=== PATIENT | female | born 1975 | race Caucasian/White ===

== ENCOUNTER 2025-03-10 10:07 | Outpatient (OUT) | payer SELFPAY ==
--- OUTSIDE RECORDS SUMMARY | 2025-03-07 19:54 | XMS_ITS | Continuity of Care Document ---
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 Name Role Phone Clara Rueda CNP Unavailable Unavailable Allergies, Adverse Reactions, Alerts Substance Reaction Status Criticality shellfish derived Active No Informa tion tetracycline Active No Information Medications Medication Instructions Dosage Effective Dates (start - stop) Status Comments desvenlafaxine succinate ER 25 mg tablet,extended release 24 hr TAKE ONE TABLET BY MOUTH DAILY AT THE same time each DAY - Active ondansetron HCl 4 mg tablet TAKE ONE TABLET BY MOUTH THREE TIMES DAILY NEEDED - Active Xanax 1 mg tablet take 1 tablet by oral route 2 times every day 1 MG - Active sertraline 100 mg tablet TAKE ONE TABLET BY MOUTH EVERY DAY - Active scopolamine 1 mg over 3 days transdermal patch apply 1 patch by transdermal route to the hairless area behind 1 ear at least 4 hr before effect is required; reapply every 3 days as needed 1.00 patch - Active Crestor 40 mg tablet take 1 tablet by oral route every day 40 MG - Active pantoprazole 40 mg tablet,delayed release take 1 tablet by oral route every day 40 MG - Active Mirena 21 mcg/24 hr (up to 8 years) 52 mg intrauterine device inject 1 Unit by Intrauterine route 1 Unit - Active Humalog [place] KwikPen (U-100) 100 unit/mL subcutaneous half-unit pen inject by subcutaneous route as per insulin protocol 0.00 - Active Procedures Procedure Date Psychotherapy 30 Minutes TeleHealth Visit [facility] Drug Monitoring Offsite Lab OFFICE VISIT/EST LEVEL III HG A1C LEVEL 7.0-8.0% LDL-C>= 130 MG/DL NEG MICROALBUMINURIA REV DIAST BP < 80 MM HG SYST BP < 130 MM HG RVW MEDS BY RX/DR IN [facility] MED LIST DOCD IN [facility] Screened Tobacco; User With Counseling J Cerv Cancer Screen Doc Rev OFFICE VISIT/EST LEVEL III HG A1C LEVEL 7.0-8.0% LDL-C>= 130 MG/DL NEG MICROALBUMINURIA REV DIAST BP < 80 MM HG SYST BP < 130 MM HG RVW MEDS BY RX/DR IN [facility] MED LIST DOCD IN [facility] Screened Tobacco; User With Counseling J PHQ2 Negative Cerv Cancer Screen Doc Rev OFFICE VISIT/EST LEVEL III HG A1C LEVEL 7.0-8.0% LDL-C>= 130 MG/DL NEG MICROALBUMINURIA REV DIAST BP < 80 MM HG SYST BP < 130 MM HG RVW MEDS BY RX/DR IN [facility] MED LIST DOCD IN [facility] Screen Tobacco; User No Counseling PHQ2 Negative Cerv Cancer Screen Doc Rev TRANS CARE MGMT 14 DAY DISCH AMNT PAIN NOTED NONE PRSNT URINE /COLOR COMPAR. OnSite Sep IUD REMOVAL (OFFICE)SIMPLE IUD INSERTION 340B Mirena IUD 52mg Levonorgestrel 7 yr SFS EXMPT URINE /COLOR COMPAR. OnSite Jul COLPOSCOPY W/ENDOCERVICAL CURETT [facility] Surgical Pathology LEVEL IV, Gross & Isma roscopic OFFICE VISIT/EST LEVEL IV HG A1C LEVEL 7.0-8.0% DIAST BP 80-89 MM HG SYST BP >=130-139MM HG RVW MEDS BY RX/DR IN [facility] MED LIST DOCD IN [facility] Screened Tobacco; User With Counseling J PHQ2 Negative Cerv Cancer Screen Doc Rev NuSwabVG+ Offsite [id number], [id number] PREV.VISIT/EST.40-64 YRS HG A1C LEVEL 7.0-8.0% DIL RETINA WITHOUT RETINOPATHY DIAST BP 80-89 MM HG SYST BP> = 140 MM HG6 IT RVW MEDS BY RX/DR IN [facility] MED LIST DOCD IN [facility] Screened Tobacco; User With Counseling J PHQ2 Negative Substance Abuse screening CHLAMYDIA/DNA PROBE Offsite Lab 025 GGDNA Offsite Lab CHLAMYDIA/DNA PROBE Offsite Lab 025 GGDNA Offsite Lab HPV, High Risk Offsite Trichomonas Vaginalis SREEDHAR Offsite Lab Thin Prep Pap Smear Offsite Psychotherapy 45 Minutes Psychotherapy Diagnostic Evaluation OV O Complex Interactive Encounter Excptn Apr OFFICE VISIT/EST LEVEL III HG A1C LEVEL 7.0-8.0% DIAST BP < 80 MM HG SYST BP >=130-139MM HG RVW MEDS BY RX/DR IN [facility] MED LIST DOCD IN [facility] Screen Tobacco; User No Counseling PHQ2 Pos W/ PHQ9 Completed OFFICE VISIT/EST LEVEL IV HG A1C LEVEL 7.0-8.0% DIAST BP < 80 MM HG SYST BP < 130 MM HG RVW MEDS BY RX/DR IN [facility] MED LIST DOCD IN [facility] Screened Tobacco; User With Counseling A Substance Abuse screening PREV.VISIT/EST.40-64 YRS HG A1C LEVEL 7.0-8.0% DIL RETINA WITHOUT RETINOPATHY DIAST BP 80-89 MM HG SYST BP < 130 MM HG RVW MEDS BY RX/DR IN [facility] MED LIST DOCD IN [facility] Screened Tobacco; User With Counseling N PHQ2 Negative OFFICE VISIT/EST LEVEL III Medication Reviewed Screened Tobacco; User With Counseling J PHQ2 Negative Substance Abuse screening SARSCOV & INF VIR A&B AG IA Onsite QUICK STREP OnSite OFFICE VISIT/EST LEVEL III Medication Reviewed Screened Tobacco; User With Counseling N PHQ2 Negative OFFICE VISIT/EST LEVEL III Medication Reviewed Screened Tobacco; User With Counseling N PHQ2 Negative OFFICE VISIT/EST LEVEL III Medication Reviewed Screened Tobacco; User With Counseling S OFFICE VISIT/NEW LEVEL III Screened Tobacco; User With Counseling A PHQ2 Negative Advance Directives Directive Yes / No Effective Date File Name No Information Encounters Encounter Description Practice Location Reason(s) For Visit Diagnoses Date Provider Providers Copied on Encounter [facility], [address] [facility] [address], [place], [place], [address], [place] tel:[phone] [place] [facility] No Information 5 Rueda GLOVE MACHINE OPERATOR Clara. [address], [place], [id number] , [place]. tel: [phone] [facility], [address] [facility] [address], [place], [place], [address], [place] tel:[phone] [place] [facility] No Information 5 Rueda GLOVE MACHINE OPERATOR Clara. [address], [place], [address] , [place]. tel: [phone] [facility], [address] [facility] [address], [place], [place], [address], [place] tel:[phone] [place] [facility] No Information 5 Rueda GLOVE MACHINE OPERATOR Clara. [address], [place], [address] , [place]. tel: [phone] Psychotherapy 30 Minutes [facility], [address] [facility] [address] [facility] [address], [place], [place], [address], [place] tel:[phone] [facility] Alcohol use disorder, severeAdjust ment disorder with mixed anxiety and depressed moodAcute stress reaction 5 Jeremy Ocampo. [address] [facility] [address], [place], [place], [address] , [place]. tel:[phone] [facility], [address], [place], [place], [address], [place] tel:[phone] [place] [facility] No Information 5 Rueda GLOVE MACHINE OPERATOR Clara. [address], [place], [address] , [place]. tel:[phone] OFFICE VISIT/EST LEVEL III [facility], [address] [facility] [address], [place], [place], [address], [place] tel:[phone] [place] [facility] anxiety (chief complaint)de pression (chief complaint) Dietary counseling and surveillance Anxiety disorder, unspecifiedT ype II diabetes mellitus with hyperosmolar ity, uncontrolled Grief reactionPTSD (post-trauma tic stress disorder)Annette little insomniaBody mass index (BMI) 29.0-29.9, adult 5 Rueda GLOVE MACHINE OPERATOR Clara. [address], [place], [address] , [place]. tel:[phone] [facility], [address] [facility] [address], [place], [place], [address], [place] tel:[phone] [place] [facility] No Information 5 Rueda GLOVE MACHINE OPERATOR Clara. [address], [place], [address] , [place]. tel:[phone] OFFICE VISIT/EST LEVEL III [facility], [address] [facility] [address], [place], [place], [address], [place] tel:[phone] [place] [facility] discuss medication for nausea (chief complaint) Dietary counseling and surveillance AnxietyTrave l-related illnessBody mass index (BMI) 29.0-29.9, adult Dec- 5 Rueda GLOVE MACHINE OPERATOR Clara. [address], [place], [address] , [place]. tel:[phone] [facility], [address] [facility] [address], [place], [place], [address], [place] tel:[phone] [place] [facility] No Information 5 Rueda GLOVE MACHINE OPERATOR Clara. [address], [place], [address] , [place]. tel:[phone] OFFICE VISIT/EST LEVEL III [facility], [address] [facility] [address], [place], [address], [place] tel:[phone] Denita mayre [facility] f/u (chief complaint) Dietary counseling and surveillance Type 1 diabetes mellitus without complication sPneumonia due to infectious organism, unspecified laterality, unspecified part of lungHospital discharge follow-upBod y mass index (BMI) 29.0-29.9, adult 5 Mohit Elizabeth. [address], [place], [place], [address] , [place]. 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 [address] [facility] , [address], [place], [place], [address] , [place]. 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 [address] [facility] [address], [place], [place], [address] , [place]. 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 [address] [facility] [address], [place], [place], [address] , [place]. [phone] PREV.VISIT/EST .40-64 YRS [facility], [address] [facility] [address], [place], [place], [address], [place] [phone] Denita mayer SB Pap Smear (chief complaint) Dietary counseling and surveillance Encounter for gynecologica l examination (general) (routine) with abnormal findingsBody mass index (BMI) 31.0-31.9, adultAnxiety Type 1 diabetes mellitus without complication s 5 Rueda GLOVE MACHINE OPERATOR Clara. [address], [place], [place], [address] , [place]. [phone] Psychotherapy 45 Minutes [facility], [address] [facility] [address], [place], [place], [address], [place] [phone] [facility] Alcohol use disorder, severeAdjust ment disorder with mixed anxiety and depressed moodRelation ship distress with spouse 4 Danyelle Small. [address] [place] [address], [id number] , [place]. tel:[phone] Psychotherapy Diagnostic Evaluation OV [facility], [address] [facility] [address], [place], [place], [address], [place] [phone] [facility] Alcohol use disorder, severeAdjust ment disorder with mixed anxiety and depressed moodRelation ship distress with spouse 4 Danyelle Small. [address] [place] [address], [id number] , [place]. tel:[phone] OFFICE VISIT/EST LEVEL III [facility], [address] [facility] [address], [place], [address], [place] tel:[phone] Denita mayer [facility] med check (chief complaint) Dietary counseling and surveillance AnxietyType 1 diabetes mellitus without complication sAlcohol abuseMild depressionBo dy mass index (BMI) 30.0-30.9, adult Sep-3 4 [facility] [address], [place], [place], [address] , [place]. tel:[phone] OFFICE VISIT/EST LEVEL IV [facility], [address] [facility] [address], [place], [place], [address], [place] tel:[phone] Denita mayer SB follow up ED (chief complaint) Body mass index (BMI) 28.0-28.9, adultAnxiety Recurrent depressionTy pe 1 diabetes mellitus without complication sSuicidal ideationHosp ital discharge follow-upAlc ohol abuseBody mass index (BMI) 30.0-30.9, adult Feb- 4 [facility]. [address], [place], [place], [address] , [place]. tel:[phone] PREV.VISIT/EST .40-64 YRS [facility], [address] [facility] [address], [place], [place], [address], [place] tel:[phone] Denita g SB preventive exam (chief complaint) Dietary counseling and surveillance Type 1 diabetes mellitus without complication sWell adult examAnxietyR ecurrent depressionRe covering alcoholicBre ast cancer screening by mammogramBod y mass index (BMI) 33.0-33.9, adult 3 [facility]. [address], [place], [place], [address] , [place]. tel:[phone] OFFICE VISIT/EST LEVEL III [facility], [address] [facility] [address], [place], [place], [address], [place] tel:[phone] Denita g SB Cellulitis (chief complaint) Dietary counseling and surveillance Type 1 diabetes mellitus without complication sCellulitis of buttockBody mass index (BMI) 30.0-30.9, adult 3 [facility]. [address], [place], [place], [address] , [place]. tel:[phone] OFFICE VISIT/EST LEVEL III [facility], [address] [facility] [address], [place], [place], [address], [place] tel:[phone] [place] [facility] swollen lymphnode (chief complaint)Fe jaime (chief complaint)De pression (chief complaint) Dietary counseling and surveillance Sore throatFever, unspecifiedD epression, recurrentAnx ietyBody mass index (BMI) 45.0-49.9, adult Nov-0 - 2 [facility]. [address], [place], [place], [address] , [place]. tel:[phone] OFFICE VISIT/EST LEVEL III [facility], [address], [id number], [place] tel:[phone] [place] [facility] spot under breast (chief complaint) Dietary counseling and surveillance Candidal intertrigoBo dy mass index (BMI) 31.0-31.9, adult Nov-0 - 2 [facility]. [address], [facility] [place], [address] , [place]. tel:[phone] OFFICE VISIT/EST LEVEL [facility], [address], [address], [place] tel:[phone] [place] [facility] URI (chief complaint) Dietary counseling and surveillance Ear pain, rightEar swelling, rightPost-CO VID syndromeBody mass index (BMI) 31.0-31.9, adult Sep-0 2 [facility]. [address], [place], [place], [address] , [place]. tel:[phone] OFFICE VISIT/NEW [facility], [address] [place] [address] [place] [address], [id number], [place] tel:[phone] [place] [facility] COVID19 (chief complaint) Dietary counseling and surveillance NauseaBody achesAcute vomitingOthe r fatigueCOVID -19 2 [facility]. [address], [place], [address] , [place]. tel:[phone] Family History Family Member Type Diagnosis Age At Onset No Information Payers Payer name Insurance type Covered green party ID Authoriza tion(s) No Information Social History Type Description Quantity Date Captured Comments Alcohol Use Details Unknown Caffeine Use Details Unknown Tobacco Use Status Smoking Status No Information Sex Female Sexual Orientation Straight or heterosexual May Gender Identity Female Chief Complaint And Reason For Visit No Information Reason For Referral Reason For Referral No Information Plan Of Treatment Date Type Action Status Goal Microalbumin urine. Due on A due Goal Foot exam. Due on due Goal Dilated Retina Exam. Due on due Goal Fundus photography of eye. D ue on due Goal eGFR. Due on due Goal MicroAlbumin. Due on 2024 due Goal Pain Screening. Due on due Goal HCV. Due on due Goal Annual Wellness Exam. Due on due Goal Tdap. Due on due Goal Colonoscopy. Due on due Goal HIV Screen. Due on 25 due Goal Lipid panel. Due on 030 due Goal HPV. Due on due Goal FIT. Due on due Goal H&P. Due on due Goal DNA Cologuard. Due on due Goal Pap/HPV testing. Due on due Goal Creatinine. Due on 26 due Goal Hemoglobin A1C. Due on due Goal Vitamin B12. Due on due Goal Lipid panel. Due on 030 due Goal Pain Screening. Due on due Goal HCV. Due on due Goal DNA Cologuard. Due on due Goal Annual Wellness Exam. Due on due Goal Tdap. Due on due Goal H&P. Due on due Goal HPV. Due on due Goal FIT. Due on due Goal Pap/HPV testing. Due on due Goal Colonoscopy. Due on due Goal HIV Screen. Due on due Goal Foot exam. Due on due Goal eGFR. Due on due Goal Dilated Retina Exam. Due on due Goal MicroAlbumin. Due on 2024 due Goal Creatinine. Due on 26 due Goal Microalbumin urine. Due on A due Goal Hemoglobin A1C. Due on due Goal Vitamin B12. Due on due Goal Fundus photography of eye. D ue on due Goal HIV Screen. Due on due Goal H&P. Due on due Goal Pain Screening. Due on due Goal Colonoscopy. Due on due Goal HCV. Due on due Goal Foot exam. Due on due Goal Creatinine. Due on due Goal eGFR. Due on due Goal Fundus photography of eye. D ue on due Goal Vitamin B12. Due on due Goal MicroAlbumin. Due on 2024 due Goal HPV. Due on due Goal Pap/HPV testing. Due on due Goal Tdap. Due on due Goal Dilated Retina Exam. Due on due Goal Microalbumin urine. Due on A due Goal Hemoglobin A1C. Due on due Goal Lipid panel. Due on due Goal DNA Cologuard. Due on due Goal Annual Wellness Exam. Due on due Goal FIT. Due on due Goal Foot exam. Due on due Goal Microalbumin urine. Due on A due Goal Dilated Retina Exam. Due on due Goal Vitamin B12. Due on due Goal MicroAlbumin. Due on 2024 due Goal Creatinine. Due on due Goal eGFR. Due on due Goal HIV Screen. Due on due Goal FIT. Due on due Goal Tdap. Due on due Goal DNA Cologuard. Due on due Goal Annual Wellness Exam. Due on due Goal H&P. Due on due Goal Colonoscopy. Due on due Goal HPV. Due on due Goal HCV. Due on due Goal Pap/HPV testing. Due on due Goal Pain Screening. Due on due Goal Hemoglobin A1C. Due on due Goal Fundus photography of eye. D ue on due Goal Lipid panel. Due on due Goal Tobacco cessation counseling completed Goal Microalbumin urine. Due on A due Goal Dilated Retina Exam. Due on due Goal Hemoglobin A1C. Due on due Goal Creatinine. Due on 26 due Goal eGFR. Due on due Goal Vitamin B12. Due on due Goal Foot exam. Due on due Goal MicroAlbumin. Due on 2024 due Goal Fundus photography of eye. D ue on due Goal DNA Cologuard. Due on due Goal Pap/HPV testing. Due on due Goal Tdap. Due on due Goal H&P. Due on due Goal HPV. Due on due Goal HIV Screen. Due on due Goal FIT. Due on due Goal Annual Wellness Exam. Due on due Goal HCV. Due on due Goal Pain Screening. Due on due Goal Lipid panel. Due on due Goal Colonoscopy. Due on due Goal Tobacco cessation counseling completed Goal Vitamin B12. Due on due Goal Creatinine. Due on due Goal MicroAlbumin. Due on 2024 due Goal Dilated Retina Exam. Due on due Goal Microalbumin urine. Due on A due Goal Foot exam. Due on due Goal Fundus photography of eye. D ue on due Goal Hemoglobin A1C. Due on due Goal eGFR. Due on due Goal H&P. Due on due Goal FIT. Due on due Goal Colonoscopy. Due on due Goal Lipid panel. Due on due Goal Pap/HPV testing. Due on due Goal HCV. Due on due Goal HPV. Due on due Goal Tdap. Due on due Goal Annual Wellness Exam. Due on due Goal DNA Cologuard. Due on due Goal Pain Screening. Due on due Goal HIV Screen. Due on due Goal Vitamin B12. Due on due Goal Microalbumin urine. Due on A due Goal eGFR. Due on due Goal Hemoglobin A1C. Due on due Goal MicroAlbumin. Due on 2024 due Goal H&P. Due on due Goal HCV. Due on due Goal Lipid panel. Due on due Goal Pain Screening. Due on due Goal DNA Cologuard. Due on due Goal Creatinine. Due on due Goal Foot exam. Due on due Goal Dilated Retina Exam. Due on due Goal Fundus photography of eye. D ue on due Goal HPV. Due on due Goal FIT. Due on due Goal Tdap. Due on due Goal Annual Wellness Exam. Due on due Goal HIV Screen. Due on due Goal Colonoscopy. Due on due Goal Pap/HPV testing. Due on due Goal Lifestyle education joeyin g diet completed Goal H&P. Due on due Goal Tdap. Due on due Goal HIV Screen. Due on due Goal Pain Screening. Due on due Goal Fundus photography of eye. D ue on due Goal Creatinine. Due on due Goal Hemoglobin A1C. Due on due Goal Microalbumin urine. Due on due Goal Potassium. Due on due Goal Vitamin B12. Due on due Goal Foot exam. Due on due Goal eGFR. Due on due Goal Dilated Retina Exam. Due on due Goal MicroAlbumin. Due on 2024 due Goal Influenza vaccine. Due on due Goal Lipid panel. Due on due Goal Annual Wellness Exam. Due on due Goal Pap/HPV testing. Due on due Goal Colonoscopy. Due on due Goal Fit test. Due on due Goal DNA Cologuard. Due on due Goal HCV. Due on due Goal Hemoglobin A1C. Due on due Goal Foot exam. Due on due Goal Fundus photography of eye. D ue on due Goal MicroAlbumin. Due on 2024 due Goal Vitamin B12. Due on due Goal Creatinine. Due on due Goal Dilated Retina Exam. Due on due Goal Potassium. Due on due Goal Tdap. Due on due Goal Pain Screening. Due on due Goal HCV. Due on due Goal H&P. Due on due Goal HIV Screen. Due on due Goal DNA Cologuard. Due on due Goal Pap/HPV testing. Due on due Goal Fit test. Due on due Goal Colonoscopy. Due on due Goal Annual Wellness Exam. Due on due Goal Lipid panel. Due on due Goal Lifestyle education regardin g diet completed Goal Tobacco cessation counseling completed Goal Dilated Retina Exam. Due on due Goal Pain Screening. Due on due Goal Tdap. Due on due Goal Annual Wellness Exam. Due on due Goal Pap/HPV testing. Due on due Goal HCV. Due on due Goal Fit test. Due on due Goal Hemoglobin A1C. Due on due Goal Creatinine. Due on due Goal Vitamin B12. Due on due Goal Fundus photography of eye. D ue on due Goal Foot exam. Due on due Goal Potassium. Due on due Goal MicroAlbumin. Due on 2024 due Goal Colonoscopy. Due on due Goal HIV Screen. Due on due Goal H&P. Due on due Goal DNA Cologuard. Due on due Goal Lipid panel. Due on due Goal Tobacco cessation counseling completed Goal Creatinine. Due on due Goal Fundus photography of eye. D ue on due Goal Vitamin B12. Due on due Goal Urine microalbumin. Due on due Goal Potassium. Due on due Goal Dilated Retina Exam. Due on due Goal Foot exam. Due on due Goal Hemoglobin A1C. Due on due Goal Lipid panel. Due on due Goal Annual Wellness Exam. Due on due Goal Pap/HPV testing. Due on due Goal Colonoscopy. Due on due Goal Fit test. Due on due Goal Pain Screening. Due on due Goal HIV Screen. Due on due Goal Tdap. Due on due Goal DNA Cologuard. Due on due Goal H&P. Due on due Goal HCV. Due on due Goal Tobacco cessation counseling completed Goal Lifestyle education regardin g diet completed Goal Dilated Retina Exam. Due on due Goal Potassium. Due on due Goal Vitamin B12. Due on due Goal Urine microalbumin. Due on due Goal Foot exam. Due on due Goal Creatinine. Due on due Goal H&P. Due on due Goal Colonoscopy. Due on due Goal HCV. Due on due Goal DNA Cologuard. Due on due Goal Influenza vaccine. Due on due Goal Pap/HPV testing. Due on due Goal Tdap. Due on due Goal Annual Wellness Exam. Due on due Goal Fit test. Due on due Goal Pain Screening. Due on due Goal HIV Screen. Due on due Goal Lipid panel. Due on due Goal Hemoglobin A1C. Due on due Goal Fundus photography of eye. D ue on due Goal Hemoglobin A1C. Due on due Goal Vitamin B12. Due on due Goal Tdap. Due on due Goal Creatinine. Due on due Goal HIV Screen. Due on due Goal Pain Screening. Due on due Goal Colonoscopy. Due on due Goal HCV. Due on due Goal Influenza vaccine. Due on due Goal Pap/HPV testing. Due on due Goal Annual Wellness Exam. Due on due Goal H&P. Due on due Goal Fit test. Due on due Goal DNA Cologuard. Due on due Goal Lipid panel. Due on due Goal Dilated Retina Exam. Due on due Goal Foot exam. Due on due Goal Potassium. Due on due Goal Urine microalbumin. Due on due Goal Fundus photography of eye. D ue on due Goal Colonoscopy. Due on due Goal Pain Screening. Due on due Goal Tdap. Due on due Goal HIV Screen. Due on due Goal Influenza vaccine. Due on due Goal Lipid panel. Due on due Goal Vitamin B12. Due on due Goal Creatinine. Due on due Goal Dilated Retina Exam. Due on due Goal Hemoglobin A1C. Due on due Goal Urine microalbumin. Due on due Goal Fundus photography of eye. D ue on due Goal Potassium. Due on due Goal Foot exam. Due on due Goal Pap/HPV testing. Due on due Goal Annual Wellness Exam. Due on due Goal Fit test. Due on due Goal H&P. Due on due Goal DNA Cologuard. Due on due Goal HCV. Due on due Goal Foot exam. Due on due Goal Creatinine. Due on due Goal Vitamin B12. Due on due Goal Fundus photography of eye. D ue on due Goal Dilated Retina Exam. Due on due Goal Potassium. Due on due Goal Urine microalbumin. Due on due Goal Hemoglobin A1C. Due on due Goal H&P. Due on due Goal Pap/HPV testing. Due on due Goal HIV Screen. Due on due Goal Lipid panel. Due on due Goal Tdap. Due on due Goal HCV. Due on due Goal Annual Wellness Exam. Due on due Goal Pain Screening. Due on due Goal Fit test. Due on due Goal Colonoscopy. Due on due Goal DNA Cologuard. Due on due Goal Tobacco cessation counseling completed Goal Vitamin B12. Due on due Goal Colonoscopy. Due on due Goal DNA Cologuard. Due on due Goal HIV Screen. Due on due Goal Pain Screening. Due on due Goal Lipid panel. Due on due Goal Fundus photography of eye. D ue on due Goal Potassium. Due on due Goal Fit test. Due on due Goal H&P. Due on due Goal Tdap. Due on due Goal Pap/HPV testing. Due on due Goal Influenza vaccine. Due on due Goal HCV. Due on due Goal Dilated Retina Exam. Due on due Goal Creatinine. Due on due Goal Foot exam. Due on due Goal Hemoglobin A1C. Due on due Goal Urine microalbumin. Due on due Goal Tobacco cessation counseling completed Goal Lifestyle education regardin g diet completed Goal Urine microalbumin. Due on due Goal Foot exam. Due on due Goal Hemoglobin A1C. Due on due Goal Fundus photography of eye. D ue on due Goal Vitamin B12. Due on due Goal Dilated Retina Exam. Due on due Goal Creatinine. Due on due Goal Potassium. Due on due Goal Lipid panel. Due on due Goal Pap/HPV testing. Due on due Goal H&P. Due on due Goal HIV Screen. Due on due Goal HCV. Due on due Goal Tdap. Due on due Goal Colonoscopy. Due on due Goal Tobacco cessation counseling completed Goal Lifestyle education regardin g diet completed Goal H&P. Due on due Goal Influenza vaccine. Due on due Goal Lipid panel. Due on due Goal Pap/HPV testing. Due on due Goal HCV. Due on due Goal Tdap. Due on due Goal HIV Screen. Due on due Goal Colonoscopy. Due on due Goal Lifestyle education regardin g diet completed Goal HCV. Due on due Goal Influenza vaccine. Due on due Goal Colonoscopy. Due on due Goal H&P. Due on due Goal Lipid panel. Due on due Goal HIV Screen. Due on due Goal Pap/HPV testing. Due on due Goal Tdap. Due on due Goal Lifestyle education regardin g diet completed Goal HIV Screen. Due on due Goal Influenza vaccine. Due on due Goal Tdap. Due on due Goal H&P. Due on due Goal Lipid panel. Due on due Goal Pap/HPV testing. Due on due Goal Dietary management education , guidance, and counseling completed Goal Dietary management education , guidance, and counseling completed Goal HIV Screen. Due on due Goal Lipid panel. Due on due Goal Pap/HPV testing. Due on due Goal Tdap. Due on due Goal H&P. Due on due Goal Dietary management education , guidance, and counseling completed Referral Ordered: Pathology (tissue specimen) ordered Referral Ordered: Screening Mammography,bilateral;Incl CAD ordered Referral Ordered: Screening Mammography,bilateral;Incl CAD Bilateral breast ordered History Of Present Illness Encounter Date Complaint History Of Helene nt Illness Comments: Has be en struggling as she recently lost her boyfriend.Endorses that she was on a cruise, boyfriend passed in room while she was sleeping without her knowing. She woke up, tried to wake him and he had already passed.History is significant for suicidal ideation and depression/anxiety.Struggles with this.She has been unable to sleep, seeing this in her dreams.She had to stay on the cruise, had to fly alone by herself.Wanting to get in to see psychiatry, counseling.Was asking by his daughter to not come to .Denies any SI depression anxiety discuss medication for nausea Comments: Going on a cruise February 03. Endorses that she will be taking 2 flights to get there. Previous cruise caused increased nausea, motion sickness and fatigue. She overall did not do well. Comments: Bartolo arteaga was admitted to [facility] on 12/10 and discharged on 12/13 for DKA and pneumonia. She went into DKA due to pneumonia. She is feeling better now, she reports that she is having nausea. She has been able to keep some foods down. Still had an upset stomach. She feels that she is having some esophageal burning and upset stomach. She is taking Pantoprazole at night. Blood sugars are running well, 178 currently. hospital f/u [facility] for DKA/ Pneumonia Mirena removal/insertion [id number] Mi elyssa [facility] 89504-009-26 Lot [id number] exp 10/21 49 yo here for Mirena IUD removal and insertion. Indications - contraceptionLMP - none with IUDUPT - negCurrent Family planning method - Mirena due for removalSymptoms - none, denies abnormal Vag discharge, AUB, pelvic painContraindications - none identified colpo 49yo with s econdary amenorrhea secondary to Mirena, here for Colpopap: LGSIL. HRHPV 16 posno prior h/o abnormal papssmokes 0.5 PPD IUD replacement Pt reports bartolome mayer Mirena IUD since 8 yrs. This is her second Mirena and she had her first one for 8 yrs as well. She reports no bleeding with IUD. She does recall difficult removal of her first IUD as strings were not seen. She was seen by her PCP and says they could not find the IUD strings. She denies pelvic pain or AUB. 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 Pt reports prior h/o abnormal paps with OB at [facility]. She denies ever requiring colposcopy or LEEP. H/o DM since age 13. Last pap prior to this was 5 yrs ago per patient. h/o cig smoking 1.5PPD Comments: Would like STD testing todayShe has an IUD in place, has been in place for 6-8 yearsNo vaginal discharge or drainageHas not had a mammogram. Pap Smear Comments: Bartolo arteaga presents today for a medication management. She is currently taking Zoloft and Pristiq, she is using Ativan as needed for anxiety. She reports that the Ativan is helping with her anxiety, but depression is severe. She endorses that she has not talked to her soon to be exhusband, but he is talking to her children. She did recently quit her job. She reports that she was late for work and cussed out her boss. Feels that thing are getting worse.She endorses that she did miss a dose of both the Pristiq and Zoloft and felt anxious and sick. After taking the dose she was feeling better. She is drinking a lot more alcohol. 8-10 shots of Vodka per day, sometimes more. med check Comments: Bartolo arteaga was recently admitted to [facility] for suicidal ideation and alcohol intoxication. She has a history of Type 1 DM and is on an insulin pump, she does have four children at home and felt guilty for this. She was planning on shooting herself and had the means at home. She was drinking 6-8 shots of Vodka daily for several months after her . 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 She did not require Ativan during her hospital stay and was discharged on Librium.She endorses that she was told by Dr. Irwin in the hospital that Buspar was not intended to be utilized as needed. she reports that he told her that she did have starvation DKA as she was not eating due to alcohol use. She has not drank ETOH since her most recent admission. Anxiety continues to be out of control, but she does have overwhelming thoughts. She does have passive suicidal thoughts. follow up ED Comments: H/O T1 D with an insulinShe does have a job, working at [employer]- has been sober for one year.She sees and supervisor whipped topping- recently put her on Gabapentin for neuropathy. This has made the tingling happen in her hands and arms. She is having jumping in her legs at night. Last A1C was 7.8. She sees Dr. Fowler. Taking Vitamin D daily- was taking it weekly. She does have basal cell skin cancer on her nose- endorses that she is having MOES procedure in July.Colonoscopy at age 22. No family history of colon cancer. She is okay with a cologuard.Does have a lot of hemorrhoids, endorses they hurt and itch. Usually Preparation H and Suppositories. She does want to see a colorectal surgeon. preventive exam Comments: Friday was in the car and sitting at a softball tournament for several hours. Changed her insulin pump site and endorses that she is having pain and firmness to the area. She did change the site. She reports that her old site is hard and firm and painful. She reports that she has not had any fevers. Cellulitis Comments: She is not sleeping well. Has been on Zoloft in the past with success. Denies SI/HI. is in rehab and has been in/out for several months. Feels that she has very little support and does not like asking for help. Comments: Ella donnelly with fever two days ago, 102 off and on. Patient endorses that she has a swollen lymphnode to right neck. Stated that it is painful and swollen. She has cough, not worse than usual. No SOB. Does have a sore throat. She has taken 4 doses of her Cephalexin for the ski infection. Depression swollen lymphnode Right side Fever Comments: Contin ues with rash under bilateral breast. Reportedly did utilize some Hydrocortisone cream with no success, rash has worsened. Painful, at times. spot under breast Comments: Right ear swelling for two days, as well as nasal congestion and sinus pressure. She reports a animal smell in her nose. Breathing has improved. She continues with difficulty with taste and smell. URI COVID19 Patient was test ed for COVID due to SOB and cough. She reports test was positive. She is a smoker and is concerned for bronchitis. Patient is having some wheezing. She has diabetes. Functional Status Date Functional Assessmen t No Information Instructions Date Instruction Additional Infor veronica [facility] for 330p todayXa nax as needed, will not refillContinue on current psych medsDiscussed SI and contract for safety completed.Offered emotional support and validation of feelings. Related to Anxiety disorder, unspecified Giving encouragement to exercise Related to Dietary counseling and surveillance Dietary needs education Related to Dietary counseling and surveillance Will provide medicat ion to prevent anxiety and nausea with traveling. Related to Anxiety Giving encouragement to exercise Related to Dietary counseling and surveillance Dietary needs education Related to Dietary counseling and surveillance Add Pepcid once donovan y Increase fluidsNotify office with concernsNotify office with issues. Related to Type 1 diabetes mellitus without complications Lifestyle education regarding di et Related to Dietary counseling Giving encouragement to exercise Related to Dietary counseling s/p Mirena IUD remov al and insertion - pt tolerated procedure wellColpo results reviewed - repeat pap in one yearfu in 4 wks for string checkIbuprofen 600mg given post procedure Related to Encounter for removal and reinsertion of intrauterine contraceptive device Dietary needs education Related to Dietary counseling and surveillance - Colposcopy done to day- FU ECC- IUD strings seen - plan for IUD removal and reinsertion in 3 wks Related to LGSIL on cytologic smear of cervix Giving encouragement to exercise Related to Dietary counseling and surveillance Lifestyle education regarding di et Related to Dietary counseling and surveillance Mammogram referral provided Rela anthony to Breast cancer screening by mammogram - Reviewed diagnosis of LGSIL/ HPV 16. Discussed HR HPV pos, risks of persistence and progression to HGSIL/ CIS. Recommend colposcopy. - Heavy cig smoker. Related to Pap smear abnormality of cervix/human papillomavirus (HPV) positive - IUD strings seen t be- Pt due for removal, would like replacement. Discussed to wait until path results of colpo. If needs LEEP can do in OR along with LEEP. Related to IUD check up - White clumpy vag d ischarge on exam- FU Nu swab Related to Vaginal discharge Giving encouragement to exercise Related to Dietary counseling and surveillance Dietary needs education Related to Dietary counseling and surveillance Will call with results. Related to Encounter for gynecological examination (general) (routine) with abnormal findings Giving encouragement to exercise Related to Dietary counseling and surveillance Lifestyle education regarding di et Related to Dietary counseling and surveillance Will add Niko dejesus with TNotify office with concerns. Related to Anxiety Giving encouragement to exercise Related to Dietary counseling and surveillance Dietary needs education Related to Dietary counseling and surveillance Genesight Completed Related to A nxiety Giving encouragement to exercise Related to Body mass index [BMI] 28.0-28.9, adult Dietary needs education Related to Body mass index [BMI] 28.0-28.9, adult One hour of physical activity daily.Eat a variety of fresh fruits and vegetables.Decrease fatty and fried foods, avoid processed foods if able. Change to whole grains and decrease amount of white rice/bread etc...Follow up yearly for well visit.Lab results to get from [facility].Encouraged to schedule papsmear. Related to Well adult exam Lifestyle education regarding di et Related to Dietary counseling and surveillance Giving encouragement to exercise Related to Dietary counseling and surveillance Warm compressesBactr im twice daily x 10 daysFollowup as needed. Related to Cellulitis of buttock Giving encouragement to exercise Related to Dietary counseling and surveillance Lifestyle education regarding di et Related to Dietary counseling and surveillance Zoloft 50mg by mouth daily x 7 days then 100mg by mouth dailyBuspar twice daily as needed for anxietyNotify office with concerns. Related to Depression, recurrent Continue on current antibiotic regime. Increase fluid consumption.Saline Nasal [place] to each nare 1-2 sprays every 4-6 hours. Phone office if symptoms do not resolve or worsen. May take OTC Tylenol or Ibuprofen for discomfort or fever.Humidifier to help with decongestion. Related to Sore throat Giving encouragement to exercise Related to Dietary counseling and surveillance Lifestyle education regarding di et Related to Dietary counseling and surveillance Keep area clean and dryDiflucan and Keflex as prescribed. Related to Candidal intertrigo Giving encouragement to exercise Related to Dietary counseling and surveillance Lifestyle education regarding di et Related to Dietary counseling and surveillance Take all medication as prescribed.Phone office if symptoms do not resolved within one week or worsen.Report any changes in ear drainage.May utilize Tylenol or Ibuprofen as needed for discomfort and fever. Related to Ear pain, right Dietary management e ducation, guidance, and counseling Related to Dietary counseling and surveillance Giving encouragement to exercise Related to Dietary counseling and surveillance Dietary management e ducation, guidance, and counseling Related to Dietary counseling and surveillance Increase fluidsNotif y office with concernsEncouraged to notify office with concerns. Related to COVID-19 Dietary management e ducation, guidance, and counseling Related to Dietary counseling and surveillance Assessments Type Assessment Date No Information Patient Care Teams Name Effective Dates (start - stop) Status Members No Information
--- OUTSIDE RECORDS SUMMARY | 2025-03-10 10:17 | XMS_ITS | Encounter Summary ---
Author Organization [facility] Address [address] [place] [address] Care Team Providers Care Track Equipment Operator Name Role Phone None, None Primary Care Provider UnavailKeerthi Ojeda NP Unavailable Unavailable Brown Murphy DO Unavailable Denton Fowler MD Unavailable [phone] Maura Newby NP Unavailable Clara Rueda MD Primary Care Provider [phone] Reason for Visit * Reason Comments Medications Refill Encounter Details Date Type Department Care Team (Late st Contact Info) Description 03/20/2016 Refill [facility] - [facility], [place] [address] [place] [address] Keerthi Munoz NP Medications Refill Social History Tobacco Use Types Packs/Day Years Used Date Smoking Tobacco: Former Cigarettes Q uit: 07/28/2001 Alcohol Use Standard Drinks/Week Comments Yes 11.7 (1 standard drink = 0.6 oz pure alcohol) socially Comments No Sex and Gender Information Value Date Recorded Sex Assigned at Female 10/28/2019 3:40 PM EDT Legal Sex Female 3:29 PM EST Gender Identity Female 10/28/2019 3:40 PM EDT Sexual Orientation Straight 10/28/2019 3: 40 PM EDT documented as of this encounter Plan of Treatment Not on file documented as of this encounter Visit Diagnoses Not on filedocumented in this encounter Care Teams Track Equipment Operator Relationship Specialty Start Date End Date None, None [address] [place] [address] PCP - General 01/08/16 06/16/24 Clara Rueda MD [address] [place] [address] PCP - General Internal Medicine 06/17/24 Keerthi Munoz NP [address] [place] [address] Nurse Practitioner Nurse Practitioner 11/28/2006/11 Brown Murphy DO [address] [place] [address] Endocrinology/Diabetes/Met abolism 08/28/21 06/11/22 Denton Fowler MD [address] [place] [address] Endocrinology/Diabetes/Met abolism 06/04/22 Maura Newby NP [address] [place] [address] Nurse Practitioner Endocrinology/Diabetes/Met abolism 09/12/22 documented as of this encounter
--- OUTSIDE RECORDS SUMMARY | 2025-03-10 10:17 | XMS_ITS | Encounter Summary ---
Author Organization [facility] Address [address] [facility] [place] [address] Phone Care Team Providers Care Machine Etcher Name Role Phone Delia Ndiaye MD Primary Care Provider [phone] Jef Serrano MD Primary Care Provider [phone] Eugene Villafuerte CNP Primary Care Provider [phone] Pcp, Thiago MCGARRY Primary Care Provider [phone] Encounter Details Date Type Department Care Team (Late st Contact Info) Description 01/09/2011 SCAN [facility] [address] [place] [address] Jef Serrano MD [address] [facility] [place] [address] Social History Tobacco Use Types Packs/Day Years Used Date Smoking Tobacco: Former Cigarettes Q uit: 07/28/2001 Smokeless Tobacco: Never Alcohol Use Standard Drinks/Week Comments Yes 0 (1 standard drink = 0.6 oz pur e alcohol) socially Comments No Sex and Gender Information Value Date Recorded Sex Assigned at Not on file Legal Sex Female 9:06 PM EDT Gender Identity Not on file Sexual Orientation Not on file documented as of this encounter Plan of Treatment Upcoming Encounters Date Type Department Care Team (Late st Contact Info) Description 10/19/2025 11:30 AM EDT Office Visit [facility] [place] [address] [place] [address] Julio C Matamoros MD [address] [place] [id number] documented as of this encounter Procedures Procedure Name Priority Date/Time Associated Diagnosis Comments DIABETIC RETINAL EXAM Routine 03/09/2010 documented in this encounter Results * DIABETIC RETINAL EXAM (03/09/2010) Retinopathy negative negative - positive Jef Serrano MD PROCEDURES Edited documented in this encounter Visit Diagnoses Not on filedocumented in this encounter Care Teams Machine Etcher Relationship Specialty Start Date End Date Delia Ndiaye MD [address] [place] [address] PCP - General 04/21/06 09/29/11 Jef Serrano MD [address] [place] [address] PCP - General 09/30/11 08/31/13 Eugene Villafuerte, FINISHING [employer] [address] [place] [address] PCP - General 05/19/23 08/04/23 PcpThiago MD [address] [place] [address] PCP - General Internal Medicine 08/05/23 documented as of this encounter
--- OUTSIDE RECORDS SUMMARY | 2025-03-10 10:17 | XMS_ITS | Encounter Summary ---
Author Organization [facility] Address [facility] [address] [place] [address] Care Team Providers Care Furniture Repairer Name Role Phone None, None Primary Care Provider UnavailKeerthi Ojeda NP Unavailable Unavailable Brown Murphy DO Unavailable Denton Fowler MD Unavailable [phone] Maura Newby NP Unavailable Clara Rueda MD Primary Care Provider [phone] Reason for Visit * Reason Comments Medications Refill Encounter Details Date Type Department Care Team (Late st Contact Info) Description 08/08/2020 Refill [facility], [address] [place] [address] Keerthi Munoz NP Medications Refill Social History Tobacco Use Types Packs/Day Years Used Date Smoking Tobacco: Former Cigarettes Q uit: 07/28/2001 Smokeless Tobacco: Never Alcohol Use Standard Drinks/Week Comments Yes 11.7 [...] on filedocumented in this encounter Care Teams Furniture Repairer Relationship Specialty Start Date End Date None, None [address] [place] [address] PCP - General 01/08/16 06/16/24 Clara Rueda MD [address] [place] [address] PCP - General Internal Medicine 06/17/24 Keerthi Munoz NP [address] [place] [address] Nurse Practitioner Nurse Practitioner 11/28/2006/11 Brown Murphy DO [address] [place] [address] Endocrinology/Diabetes/Met abolism 08/28/21 06/11/22 Denton Fowler MD [address] [place] [address] Endocrinology/Diabetes/Met abolism 06/04/22 Maura Newby NP [address] [place] [address] Nurse Practitioner Endocrinology/Diabetes/Met abolism 09/12/22 documented as of this encounter
--- OUTSIDE RECORDS SUMMARY | 2025-03-10 10:17 | XMS_ITS | Encounter Summary ---
Author Organization [facility] Address [address] [place] [address] [place] [address] Phone Care Team Providers Care Inspector Returned Materials Name Role Phone Pcp, None Primary Care Provider [phone] Encounter Details Date Type Department Care Team (Late st Contact Info) Description 02/01/2025 Orders Only [facility] - Dermatology [address] 2nd [place] [address] Rupal Maldonado, Registered Nurse [address] [place] [address] Social History Tobacco Use Types Packs/Day Years Used Date Smoking Tobacco: Every Day Cigarettes Last attempted to quit: 07/28/2001 Passive Smoke Exposure: Current Smokeless Tobacco: Never Comments:1pk daily Alcohol Use Standard Drinks/Week Comments Yes 0 (1 standard drink = 0.6 oz pur e alcohol) socially Food Insecurities Answer Date Recorded Worried about running out of food Not on file 08/16/2023 Food Bought Not on file 08/16/2023 Housing/Utilities Answer Date Recorded Worried about losing home Not on file 2023 Stayed outside house Not on file 08/16/2023 Unable to get utilities Not on file 08/16/19 24 Interpersonal Safety Answer Date Record ed Feel physically or emotionally unsafe where curr ently live Not on file 08/16/2023 Harm by anyone Not on file 08/16/2023 Emotionally Harmed Not on file 08/16/2023 Transportation Answer Date Recorded Worried about transportation Not on file Utilities Answer Date Recorded Worried about losing home Not on file 2023 Stayed outside house Not on file 11/28/2023 Unable to get utilities Not on file 11/28/19 24 Comments No Sex and Gender Information Value Date Recorded Sex Assigned at Not on file Legal Sex Female 9:06 PM EDT Gender Identity Not on file Sexual Orientation Not on file documented as of this encounter Plan of Treatment Upcoming Encounters Date Type Department Care Team (Late st Contact Info) Description 10/19/2025 11:30 AM EDT Office Visit [facility] D[facility] [address] [place] [address] Julio C Matamoros MD [address] [place] [phone] documented as of this encounter Visit Diagnoses Not on filedocumented in this encounter Care Teams Inspector Returned Materials Relationship Specialty Start Date End Date PcpThiago MD PCP - General Internal Medicine 08/05/23 documented as of this encounter
--- OUTSIDE RECORDS SUMMARY | 2025-03-10 10:17 | XMS_ITS | Clinical Summary ---
Author Organization [facility] Address [address] [place] [address] Care Team Providers Care Roller Engraver Name Role Phone Unavailable Primary Care Provider Unavailabl e Source Comments [facility] is fully rolled out with thefollowing exceptions:General [facility] Social History Tobacco Use Types Packs/Day Years Used Date Smoking Tobacco: Never Assessed Comments Unknown Sex and Gender Information Value Date Recorded Sex Assigned at Not on file Legal Sex Female 5:17 AM EST Gender Identity Not on file Sexual Orientation Not on file Plan of Treatment Health Maintenance Due Date Last Done Comments MMR IMMUNIZATION (1 of 1 - S tandard series) 1978 DTAP/Tdap/Td IMMUNIZATION (1 - Tdap) 1984 VARICELLA IMMUNIZATION (1 of 2 - 13+ 2-dose series) 1990 HEPATITIS B IMMUNIZATION (1 of 3 - 19+ 3-dose series) 1996 COVID-19 Vaccine ( - 2023-2 5 season) 2024 AMB SEASONAL FLU VACCINE (#1) 03/28/2025 HIB IMMUNIZATION Aged Out No longer e ligible based on patient's age to complete this topic HPV IMMUNIZATION Aged Out No longer e ligible based on patient's age to complete this topic IPV IMMUNIZATION Aged Out No longer e ligible based on patient's age to complete this topic MCV4 IMMUNIZATION Aged Out No longer eligible based on patient's age to complete this topic MENINGOCOCCAL B VACCINE Aged Out No l onger eligible based on patient's age to complete this topic PNEUMOCOCCAL IMMUNIZATION Aged Out No longer eligible based on patient's age to complete this topic Respiratory Syncytial Virus (RSV) <20mo Aged Out No longer eligible b ased on patient's age to complete this topic
--- OUTSIDE RECORDS SUMMARY | 2025-03-10 10:17 | XMS_ITS | Clinical Summary ---
Author Organization [facility] Address [facility] [place] [address] Care Team Providers Care Administrative Judge Name Role Phone Denton Fowler MD Unavailable [phone] Maura Newby NP Unavailable Clara Rueda MD Primary Care Provider [phone] Allergies Active Allergy Reactions Criticality Noted Date Comments Iodine Anaphylaxis High 08/21/2019 Shellfish Containing Products 2008 Tetracycline Hives 05/24/2013 Tetracyclines Nausea And Vomiting Low 08/21/2019 Medications aspirin 81 mg PO TbEC daily. Active LEVONORGESTREL IU As directed Active nystatin-triamcin olone (MYCOLOG II) cream One tube. Use as directed. 30 g 1 014 Active Additional Information Patient not taking.Reported on 11/18/2024 mupirocin (BACTROBAN) 2 % ointment APPLY DIRECTED 22 g 1 018 Active Additional Information Patient not taking.Reported on 11/18/2024 sertraline (ZOLOFT) 100 mg tablet TAKE 1 TABLET BY MOUTH EVERY EVENING 30 Tablet 2 021 Active glucose blood test strips (Contour Next Test Strips) StripIndications: Uncontrolled type 1 diabetes mellitus with hyperglycemia (CMS/HCC) Tests 6 times daily 100 Strip 11 022 Active glucagon (Baqsimi) 3 mg/actuation squeeze bottleIndications :Uncontrolled type 1 diabetes mellitus with hyperglycemia (CMS/HCC) Good Thunder 3 mg into nose once as needed for Other (enter comment) (Severe hypoglycemia) for up to 1 dose. 1 Each 022 Active ergocalciferol (ERGOCALCIFEROL) 1,250 mcg (50,000 unit) Capsule Take 1 capsule by mouth once weekly. 12 Capsule 1 Active Additional Information Patient not taking.Reported on 11/18/2024 desvenlafaxine succinate (PRISTIQ PO) Take by mouth nightly at bedtime. Active Cholecalciferol, Vitamin D3, (Vitamin D-3) 50 mcg (2,000 unit) CapsuleIndication s:Vitamin D deficiency Take 1 Capsule (2,000 Units) by mouth daily. 360 Capsule Active gabapentin (NEURONTIN) 300 mg capsuleIndication s:Diabetic polyneuropathy associated with type 1 diabetes mellitus (CMS/HCC) TAKE ONE CAPSULE BY MOUTH NIGHTLY AT BEDTIME 90 Capsule 1 025 2024 Active insulin lispro (HumaLOG) 100 unit/mL SolutionIndicatio ns:Uncontrolled type 1 diabetes mellitus with hyperglycemia (CMS/HCC) Use up to 100 units daily in the insulin pump. 90 mL 1 Active thiamine (Vitamin B-1) 100 mg tablet Take 100 mg by mouth daily. Active spironolactone (ALDACTONE) 25 mg tablet Take 25 mg by mouth 2 times daily. Active rosuvastatin (CRESTOR) 40 mg TabletIndications :Mixed hyperlipidemia Take 1 Tablet by mouth daily. 90 Tablet 1 Active Dexcom G6 TransmitterIndica tions:Uncontrolle d type 1 diabetes mellitus with hyperglycemia (CMS/HCC) Use to check blood sugar. Change device every 3 months 1 Each Active Omnipod 5 G6-G7 Pods, Gen 5, CartridgeIndicati ons:Type 1 diabetes mellitus with hyperglycemia (CMS/HCC) USE ONE UNDER THE SKIN DIRECTED EVERY THREE DAYS 10 Each 025 Active Dexcom G6 SensorIndications :Uncontrolled type 1 diabetes mellitus with hyperglycemia (CMS/HCC) Apply 1 device every 10 days. 9 Each Active Omnipod 5 G6-G7 Pods, Gen 5, CartridgeIndicati ons:Type 1 diabetes mellitus with hyperglycemia (CMS/HCC) USE ONE UNDER THE SKIN DIRECTED EVERY THREE DAYS 10 Each 025 2024 Discontinued Dexcom G6 SensorIndications :Uncontrolled type 1 diabetes mellitus with hyperglycemia (CMS/HCC) Apply 1 device every 10 days. 9 Each 1 025 2024 Discontinued Active Problems Problem Noted Date Diagnosed Date Diabetic polyneuropathy sukumar andre with type 1 diabetes mellitus 08/20/2024 Depression with suicidal ideation 03/18/2024 Anxiety state 07/14/2016 Class 1 obesity due to excess calories in adult 10/06/2015 DM (diabetes mellitus), type 1, uncontrolled (CM S HCC) 05/27/2014 Type 1 diabetes mellitus, uncontrolled 3 Hypoglycemia 05/31/2013 Insulin pump titration 05/31/2013 Hypercholesteremia 05/31/2013 Hyperlipidemia with target LDL less than 100 10/2012 Encounters Date Type Department Care Team Description 02/24/2025 Refill [facility] Diabetes & Endocrine [place], [place] [address] [place] [address] Denton Fowler MD Medications Refill 02/20/2025 Refill [facility] Diabetes & Endocrine [place], [place] [address] [address] Denton Fowler MD Medications Refill 12/21/2024 Refill [facility], [address] [address] Denton Fowler MD Medications Refill 12/17/2024 Telephone [facility] Endocrine [place], [place] [address] [place] [address] Len Zuleta Diabetes; Scheduling from Last 3 Months Family History Medical History Relation Name Comments Heart Problems Father High Cholesterol Father Hypertension Father Heart Problems Maternal Grandfather Heart Problems Maternal Grandmother High Cholesterol Mother Heart Problems Paternal Grandfather Heart Problems Paternal Grandmother Relation Name Status Comments Father Maternal Grandfather Maternal Grandmother Mother Paternal Grandfather Paternal Grandmother Social History Tobacco Use Types Packs/Day Years Used Date Smoking Tobacco: Every Day Cigarettes 0.5 23.6 Started: 07/28/2001 Smokeless Tobacco: Never Alcohol Use Standard Drinks/Week Comments Yes 11.7 (1 standard drink = 0.6 oz pure alcohol) socially Comments No Sex and Gender Information Value Date Recorded Sex Assigned at Female 10/28/2019 3:40 PM EDT Legal Sex Female 3:29 PM EST Gender Identity Female 10/28/2019 3:40 PM EDT Sexual Orientation Straight 10/28/2019 3: 40 PM EDT Last Filed Vital Signs Vital Sign Reading Time Taken Comments Blood Pressure 128/80 11/18/2024 11:08 AM EDT Pulse 105 08/03/2019 11:15 AM EST Temperature 36.6 C (97.8 F) 02/03/2020 11:06 AM EDT Respiratory Rate - - Oxygen Saturation - - Inhaled Oxygen Concentration - - Weight 83.5 kg (184 lb) 11/18/2024 11:08 AM EDT Height 162.6 cm (5' 4 ) 11/18/2024 11:08 AM EDT Body Mass Index 31.58 11/18/2024 11:08 AM EDT Plan of Treatment Health Maintenance Due Date Last Done Comments Cologuard 1977 Colonoscopy 1977 Colorectal Cancer Screening 1977 FIT 1977 Tobacco Cessation Counseling 1989 Tetanus Vaccination (Every 1 0 Years) 1995 Cervical Cancer Screening 1998 Diabetes Mellitus Eye Exam (Yearly) 06/12/2016 06/12/2015, 01/08/2011 COVID-19 Vaccine (2023-2 5 season) 2024 BMI Counseling 07/28/2024 Depression Screening 07/28/2024 Influenza Vaccination (#1) 2025 Diabetes A1c Monitoring 05/18/2025 11/17/19, 10/25/2024, 09/26/2024, Additional history exists Renal Monitoring 10/26/2025 10/26/2024, 07/2024, 10/25/2024, Additional history exists Diabetes Mellitus Microalbum in (Yearly) 11/16/2025 11/16/2024, 09/12/2022, 02/03/2020, Additional history exists Lipid Monitoring 11/16/2025 11/16/2024, , 06/17/2024, Additional history exists Diabetes Mellitus Foot Care (Yearly) 11/18/2025 11/18/2024 Diabetes Mellitus Hemoglobin A1c (Yearly) Discontinued 11/16/2024, 10/25/2024, 09/26/2024, Additional history exists Lipid Screening Discontinued 11/16/2024, 09/27, 06/17/2024, Additional history exists Procedures Procedure Name Priority Date/Time Associated Diagnosis Comments ALBUMIN, URINE CREATININE/RATIO Routine 11/16/2024 9:28 AM EDT Uncontrolled type 1 diabetes mellitus with hyperglycemia (CMS/HCC) LIPID PROFILE Routine 11/16/2024 9:22 AM EDT Hyperlipidemia with target LDL less than 100 HGB, A1C (GLYCOHEMOGLOBIN) Routine 11/16/2024 9:22 AM EDT Uncontrolled type 1 diabetes mellitus with hyperglycemia (CMS/HCC) COMPREHENSIVE METABOLIC PANEL Routine 06/17/2024 10:32 AM EST Uncontrolled type 1 diabetes mellitus with hyperglycemia from Last 3 Months or Most Recently Relevant to Health Maintenance Results * ALBUMIN, URINE CREATININE/RATIO (11/16/2024 9:28 AM EDT) Creatinine, Ur 103.0 20.0 - 310.0 mg/dL [facility] Alb, Ur 0.60 mg/dL [facility] Alb Creat Ratio 6 0 - 30 mg/g creat [facility] Comment: Category Result (mg/ g Creat) Normal to mildly increased <30 Moderately increased 30-299 Severly increased >300 Due to variability in urinary albumin excretion, at least two of three test results measured within a 6-month period should show elevated levels before a patient is designated as having albuminuria. Urine 11/16/2024 9:28 AM EDT 11/16/2024 5:44 PM EDT us Maura Newby NP URINE ORDERABLES Final Result [facility] [address] * (ABNORMAL) LIPID PROFILE (11/16/2024 9:22 AM EDT) Cholesterol 215(H) 125 - 199 mg/dL [facility] Comment: TOTAL CHOLESTEROL INTERPRETATION: Less than 200 mg/dL Desireable 200-239 mg/dL Borderline Greater or Equal to 240 mg/dL High LDL Calculated 143(H) 0 - 100 mg/dL [facility] Comment: LDL CHOLESTEROL INTERPRETATION: Less than 100 mg/dL Optimal 100-129 mg/dL Near optimal/above optimal 130-159 mg/dL Borderline High 160-189 mg/dL High Greater or Equal to 190 mg/dL Very High HDL 59 40 - 180 mg/dL [facility] Comment: HDL CHOLESTEROL INTERPRETATION: Less than 40 mg/dL Low Greater than 60 mg/dL Desirable Triglycerides 67 0 - 149 mg/dL [facility] Comment: TOTAL TRIGLYCERIDE INTERPRETATION: Less than 150 mg/dL Normal 150-199 mg/dL Borderline HIgh 200-499 mg/dL High Greater or Equal to 500 mg/dL Very High NONHDL Calculated 156(H) 0 - 129 mg/dL [facility] Comment: NON-HDL INTERPRETATION: Less than 130 mg/dL Desirable 130-159 mg/dL Above Desirable 160-189 mg/dL Borderline High 190-219 mg/dL High Greater than or equal to 220 mg/dL Very High Serum (Serum) 11/16/2024 9:2 2 AM EDT 11/16/2024 6:39 PM EDT us Maura Newby NP CHEMISTRY ORDERABLES Final Resul t [facility] [address] * (ABNORMAL) HGB, A1C (GLYCOHEMOGLOBIN) (11/16/2024 9:22 AM EDT) Hgb A1C 7.5(H) 4.0 - 5.6 % [facility] Comment: Reference Ranges for Hgb A1c: Increased risk for diabetes: 5.7-6.4% Probable diabetes: >=6.5% Desired control for previously diagnosed diabetics: <7.0% Many conditions can affect the Hgb A1c value including hemolysis, recent transfusion, hemoglobin variants, thalassemias, severe chronic hepatic and renal disease and iron deficiency among others. Please note that results from this assay are invalid for patients with abnormal amounts of Hemoglobin (HbF). Results must be interpreted in the proper clinical context. This method is certified by the National Glycohemoglobin Standardization program (NGSP) and traceable to [facility]. Estimated Average Glucose 169(H) 68 - 114 mg/dL [facility] Whole Blood 11/16/2024 9:22 AM EDT 11/16/2024 4:59 PM EDT us Maura Newby NP CHEMISTRY ORDERABLES Final Resul t [facility] [address] [place] [id number] * (ABNORMAL) COMPREHENSIVE METABOLIC PANEL (06/17/2024 10:32 AM EST) Sodium 139 135 - 146 mmol/L [facility] Potassium 4.1 3.5 - 5.1 mmol/L [facility] Chloride 105 98 - 110 mmol/L [facility] CO2 25 22 - 29 mmol/L [facility] Anion Gap 9 5 - 13 mmol/L [facility] Comment:Anion gap calculatio n does not include potassium (K+) value. BUN 14 7 - 25 mg/dL [facility] Creatinine 0.72 0.50 - 1.20 mg/dL [facility] Glucose 157(H) 71 - 99 mg/dL [facility] Comment:Reference range (71- 99 mg/dL) refers only to fasting samples, and does not apply to non-fasting samples. eGFR CKD-EPI 2020 104 See Note [facility] Comment: eGFR calculated with 2020 CKD-EPI equation using creatinine, patient's age and gender. Other factors, especially muscle mass, may affect accuracy and need to be considered. Patient values should be interpreted as a trend. The reference interval is >60 mL/min/1.73m2. Calcium 9.5 8.5 - 10.5 mg/dL [facility] Total Bilirubin 0.9 0.2 - 1.2 mg/dL [facility] AST 23 0 - 30 U/L [facility] ALT 20 0 - 40 U/L [facility] Alkaline Phosphatase 42 33 - 140 U/L [facility] Total Protein 7.0 6.0 - 8.0 g/dL [facility] Albumin 4.5 3.5 - 5.0 g/dL [facility] Globulin 2.5 2.0 - 3.7 g/dL [facility] Albumin/Globulin Ratio 1.8 1.0 - 2.1 [facility] BUN/Creatinine Ratio 19 [facility] Serum (Serum) 06/17/2024 10: 32 AM EST 06/17/2024 5:26 PM EST us Denton Fowler MD CHEMISTRY ORDERABLES Final Re sult [facility] [address] from Last 3 Months or Most Recently Relevant to Health Maintenance Insurance [employer] * Guarantor: [employer] Account Type Relation to Patient Date of Phone Billing Address Corporate Other [address] [place] [address] Care Teams Administrative Judge Relationship Specialty Start Date End Date Clara Rueda MD [address] [place] [address] PCP - General Internal Medicine 06/17/24 Denton Fowler MD [address] [place] [address] Endocrinology/Diabetes/M etabolism 06/04/22 Maura Newby NP [address] [place] [address] Nurse Practitioner Endocrinology/Diabetes/M etabolism 09/12/22
--- OUTSIDE RECORDS SUMMARY | 2025-03-10 10:17 | XMS_ITS | Encounter Summary ---
Author Organization [facility] Address [address] [place] [address] Care Team Providers Care Ssrs Report Developer Name Role Phone Denton Fowler MD Unavailable [phone] Maura Newby NP Unavailable Clara Rueda MD Primary Care Provider [phone] Reason for Visit * Reason Comments Medications Refill Encounter Details Date Type Department Care Team (Late st Contact Info) Description 02/24/2025 Refill [facility] - [facility], [place] [address] [place] [phone] Denton Fowler MD [address] [place], [place] [id number] Medications Refill Social History Tobacco Use Types [...] PM EDT documented as of this encounter Miscellaneous Notes * Telephone Encounter - Cheyanne Chavez MA - 02/24/2025 8:24 AM EDT MAULIK 11/18/24 NOV none documented in this encounter Plan of Treatment Not on file documented as of this encounter Visit Diagnoses Diagnosis Uncontrolled type 1 diabetes mellitus with hyperglycemia (CMS/HCC) documented in this encounter Care Teams Ssrs Report Developer Relationship Specialty Start Date End Date Clara Rueda MD [address] [place] [address] PCP - General Internal Medicine 06/17/24 Denton Fowler MD [address] [place], [place] [address] Endocrinology/Diabetes/M etabolism 06/04/22 Maura Newby NP [address] [place] [address] Nurse Practitioner Endocrinology/Diabetes/M etabolism 09/12/22 documented as of this encounter
--- OUTSIDE RECORDS SUMMARY | 2025-03-10 10:17 | XMS_ITS | Encounter Summary ---
Author Organization [facility] Address [address] [place] [address] Phone Care Team Providers Care Sand Plant Attendant Name Role Phone Delia Ndiaye MD Primary Care Provider Jef Serrano MD Primary Care Provider [phone] Eugene Villafuerte CNP Primary Care Provider [phone] Pcp, Thiago MCGARRY Primary Care Provider [phone] Encounter Details Date Type Department Care Team (Late st Contact Info) Description 10/15/2010 SCAN [facility] [address] [place] [address] Social History Tobacco Use Types Packs/Day Years Used Date Smoking Tobacco: Former Cigarettes Q uit: 07/28/2001 Alcohol Use Standard Drinks/Week Comments Yes 0 [...] Description 10/19/2025 11:30 AM EDT Office Visit [facility] [place] [address] [place] [address] Julio C Matamoros MD [address] [place] [address] documented as of this encounter Procedures Procedure Name Priority Date/Time Associated Diagnosis Comments LAB SCAN Routine 07/24/2010 HEMOGLOBIN [id number] Routine 07/24/2010 LIPID PROFILE Routine 07/24/2010 documented in this encounter Results * (ABNORMAL) HEMOGLOBIN [id number] (07/24/2010) HEMOGLOBIN A1C 7.5(A) 4.2 - 6.5 % [facility] Whole blood specimen (specimen) [facility] Edited Performing Organization Address City/[facility]/ZIP Co de Phone Number [facility] [address] [place] [phone] * (ABNORMAL) LIPID PROFILE (07/24/2010) CHOLESTEROL 245(A) 0 - 200 MG/DL [facility] TRIGLYCERIDE 78 35 - 160 MG/DL [facility] HDL CHOLESTEROL 53 >=35 MG/DL [facility] LDL 176(A) 0 - 100 MG/DL [facility] CHOL/HDL RATIO 4.6(A) 1.9 - 4.2 [facility] Whole blood specimen (specimen) [facility] LABORAT[facility] Edited Performing Organization Address City/[facility]/ZIP Co de Phone Number [address] [address] * LAB SCAN (07/24/2010) [facility] Final Result documented in this encounter Visit Diagnoses Not on filedocumented in this encounter Care Teams Sand Plant Attendant Relationship Specialty Start Date End Date Delia Ndiaye MD [address] [place] [address] PCP - General 04/21/06 09/29/11 Jef Serrano MD [address] [place] [phone] PCP - General 09/30/11 08/31/13 Eugene Villafuerte, TEACHER DRAMATICS [address] [place] [address] PCP - General 05/19/23 08/04/23 Pcp, MD Thiago [address] [place] [address] PCP - General Internal Medicine 08/05/23 documented as of this encounter
--- OUTSIDE RECORDS SUMMARY | 2025-03-10 10:17 | XMS_ITS | Referral Summary ---
Author Organization [facility] Address [address] [place] [address] Phone Care Team Providers Care Wooden Boat Builder Name Role Phone Pcp, None MD Primary Care Provider [phone] Encounters Date Type Department Care Team Description 02/01/[address] [place] [address] Julio C Matamoros MD 02/01/2025 Orders Only [address] [place] [address] Rupal Maldonado, Registered Nurse from Last 3 Months Allergies Active Allergy Reactions Criticality Noted Date Comments Shellfish 05/03/2009 Tetracycline 12/22/2002 hives Medications Levonorgestrel (MIRENA) 20 MCG/24HR IU IUD as directed Ac tive Aspirin (ASPIR-81) 81 MG PO TBEC 1 daily Active Insulin Syringe-Needle U-100 (B-D INSULIN SYRINGE) 31G X 12/10 0.5 ML XX MISC use QID or as directed 50 Each 0 07/11/2011 Active sertraline 100 MG PO TABS Take 1 tablet by mouth daily. 30 tablet 5 12/10/2011 Active simvastatin (ZOCOR) 40 MG TABS TAKE ONE TABLET BY MOUTH EVERY DAY 30 tablet 11 02/05/2012 Active insulin aspart (NOVOLOG) 100 UNIT/ML SOLN Use 30 Units daily. via insulin pump 30 mL 3 03/19/2012 Active busPIRone (BUSPAR) 15 mg tablet Take 1 tablet by mouth 3 (three) times daily as needed. 05/10/2023 Active Cholecalciferol 50 MCG (1999) CAPS 06/01/2023 Active rosuvastatin (CRESTOR) 20 MG TABS Take 1 tablet by mouth daily. Active spironolactone (ALDACTONE) 50 MG TABS Take one tablet twice daily. For acne vulgaris 180 tablet 5 10/19/2024 Active clindamycin (CLEOCIN T) 1 % SOLN Apply to acne prone skin once daily 60 mL 3 02/01/2025 Active Active Problems Problem Noted Date Diagnosed Date Status post Mohs surgery for basal cell carcinom a 07/31/2023 Plantar fascial fibromatosis 09/05/2011 Uncontrolled type 1 diabetes mellitus 12/10/2010 Other and unspecified hyperlipidemia 12/10/2010 Anxiety state 12/10/2010 Immunizations Immunization Administration Dates Next Due Influenza Whole, IM 04/16/2011,07/24/2010 Social History Tobacco Use Types Packs/Day Years Used Date Smoking Tobacco: Every Day Cigarettes Last attempted to quit: 07/28/2001 Passive Smoke Exposure: Current Smokeless Tobacco: Never Tobacco Cessation:Ready to Q uit: No; Counseling Given: Yes Comments:1pk daily Alcohol Use Standard Drinks/Week Comments [...] on file Sexual Orientation Not on file Last Filed Vital Signs Vital Sign Reading Time Taken Comments Blood Pressure 121/83 07/31/2023 10:39 AM EST Pulse 95 07/31/2023 10:39 AM EST Temperature 38.1 C (100.6 F) 05/03/2009 4:13 PM EDT Respiratory Rate - - Oxygen Saturation - - Inhaled Oxygen Concentration - - Weight 86.2 kg (190 lb) 07/31/2023 10:39 AM EST Height 165.1 cm (5' 5 ) 05/19/2023 9:53 AM EDT Body Mass Index 31.62 05/19/2023 9:53 AM EDT Plan of Treatment Upcoming Encounters Date Type Department Care Team (Late st Contact Info) Description 10/19/2025 11:30 AM EDT Office Visit [facility] Dermatology [facility] [address] [place] [address] Julio C Matamoros MD [address] [facility] [address] [place] [address] Procedures Procedure Name Priority Date/Time Associated Diagnosis Comments CYTOLOGY METALIZING MACHINE OPERATOR Routine 03/25/2006 12:00 AM EDT from Last 3 Months or Most Recently Relevant to Health Maintenance Results * Cytology METALIZING MACHINE OPERATOR (03/25/2006 12:00 AM EDT) 03/25/2006 03/26/2006 7:4 9 AM EDT Narrative [facility] - 04/01/2006 9:58 AM EDT CYTOLOGY GYNECOLOGICAL REPORT Name: JUANITO CARABALLO EPI#: [id number] Case #: [id number] Final Cytologic Diagnosis A. Cervical/Endocervical thinprep pap: Adequacy: Satisfactory for evaluation, endocervical transformation zone component present. Interpretation: Negative for intraepithelial lesion or malignancy. Electronically Signed Out By Cleopatra Newman, SCT(ASCP),CMIA Source of Specimen(s) A: Cervical/Endocervical thinprep pap Clinical History Menstrual History: Signed out at [facility], [address] [place] [id number] [facility] Non-Formatted Report Norah Newman MD PATHOLOGY/CYTOLOGY ORDERABLES Final Result [facility] [address] [place] [address] from Last 3 Months or Most Recently Relevant to Health Maintenance Insurance [facility] MEDICAID on file Care Teams Wooden Boat Builder Relationship Specialty Start Date End Date Pcp, Thiago, PCP - General Internal Medicine 08/05/23
--- OUTSIDE RECORDS SUMMARY | 2025-03-10 10:17 | XMS_ITS | Encounter Summary ---
Author Organization [facility] Address [address] [place] [address] Care Team Providers Care Diesel Engine Pipe Fitter Name Role Phone None, None Primary Care Provider Unavailabl e Denton Fowler MD Unavailable [phone] Maura Newby NP Unavailable Clara Rueda MD Primary Care Provider [phone] Reason for Visit * Reason Onset Date Comments Medications Refill 04/22/2024 Encounter Details Date Type Department Care Team (Late st Contact Info) Description 04/22/2024 Refill [facility] - [facility], [place] [address] [place] [address] Denton Fowler MD [address] [place] [address] Medications Refill Social History Tobacco Use Types [...] encounter Miscellaneous Notes * Telephone Encounter - Alexandra Mora - 04/22/2024 8:36 AM EDT Refills have been requested for this patient. What medication is needed? ( Pend orders when possible) Who is requesting the refill: Rx Pharmacy: [facility]: Last Office Visit:December 09 Next Office Visit:06/17/2024 CONCERNS/ CLARIFICATIONS NEEDED: If medication not pended: Name of medication: Dose: Frequency: documented in this encounter Plan of Treatment Not on file documented as of this encounter Visit Diagnoses Diagnosis Uncontrolled type 1 diabetes mellitus with hyperglycemia (CMS/[facility]) documented in this encounter Care Teams Diesel Engine Pipe Fitter Relationship Specialty Start Date End Date None, None [address] [place] [address] PCP - General 01/08/16 06/16/24 Clara Rueda MD [address] [place] [address] PCP - General Internal Medicine 06/17/24 Denton Fowler MD [address] [place] [address] Endocrinology/Diabetes/M etabolism 06/04/22 Maura Newby NP [address] [place] [address] Nurse Practitioner Endocrinology/Diabetes/M etabolism 09/12/22 documented as of this encounter
--- OUTSIDE RECORDS SUMMARY | 2025-03-10 10:18 | XMS_ITS | Clinical Summary ---
Author Organization [facility] Address [address] [facility] [address] [place] [address] Phone Care Team Providers Care Community Service Aide Name Role Phone Pcp, None MD Primary Care Provider [phone] Allergies Active Allergy Reactions Criticality Noted Date [...] as needed. 05/10/2023 Active Cholecalciferol 50 MCG (1999 [place]) CAPS 06/01/2023 Active rosuvastatin (CRESTOR) 20 MG [...] and unspecified hyperlipidemia 12/10/2010 Anxiety state 12/10/2010 Encounters Date Type Department Care Team Description 02/01/2025 Refill [facility] [address] [place] [address] Julio C Matamoros MD 02/01/2025 Orders Only [facility] [address] [place] [address] Rupal Maldonado, Registered Nurse from Last 3 Months Immunizations Immunization Administration Dates Next Due Influenza Whole, IM 04/16/2011,07/24/2010 Family History Medical History Relation Name Comments Heart Disease Father High BP Father High Cholesterol Father Heart Disease Maternal Grandfather Heart Disease Maternal Grandmother High Cholesterol Mother Heart Disease Paternal Grandfather Heart Disease Paternal Grandmother Relation Name Status Comments Father [...] to get utilities Not on file 08/16/19 Interpersonal Safety Answer Date Record ed Feel [...] Description 10/19/2025 11:30 AM EDT Office Visit [facility] Dermatology [facility] [address] [place] [address] Julio C Matamoros MD [address] [place] [address] Health Maintenance Due Date Last Done Comments DTap,Tdap,and Td (1 - Tdap) 1988 Pneumococcal 0-49 (1 of 2 - PCV) 1996 Pap Screening 11/25/2014 11/26/2011, 09/25/2008 (Previously Completed), 03/25/2006 Mammogram Screening 2017 Colonoscopy 2022 Influenza Vaccine (#1) 2025 1, 07/24/2010 RSV Vaccine (60+ or ) (1 - 1-dose 75+ series) 2052 HPV Aged Out No longer eligi ble based on patient's age to complete this topic Meningococcal conjugate nanda nt 4 (MCV4) Aged Out No longer eligible b ased on patient's age to complete this topic RSV Immunization (<20 months) Aged Out No longer eligible based on patient's age to complete this topic Procedures Procedure Name Priority Date/Time Associated Diagnosis Comments CYTOLOGY PAINT PREP TECHNICIAN Routine 03/25/2006 12:00 AM EDT from Last 3 Months or Most Recently Relevant to Health Maintenance Results * Cytology PAINT PREP TECHNICIAN (03/25/2006 12:00 AM EDT) 03/25/2006 03/26/2006 7:4 9 AM EDT Narrative [facility] - 04/01/2006 9:58 AM EDT CYTOLOGY GYNECOLOGICAL REPORT Name: JUANITO CARABALLO. EPI#: [id number] Case #: [id number] Final Cytologic Diagnosis A. Cervical/Endocervical thinprep pap: Adequacy: Satisfactory for evaluation, endocervical transformation zone component present. Interpretation: Negative for intraepithelial lesion or malignancy. Electronically Signed Out By Cleopatra Newman, [facility](ASCP),IA Source of Specimen(s) A: Cervical/Endocervical thinprep pap Clinical History Menstrual History: Signed out at [facility], [address] [place] [address] [facility] Non-Formatted Report Norah Newman MD PATHOLOGY/CYTOLOGY ORDERABLES Final Result [place] [address] [place], [place] [id number] from Last 3 Months or Most Recently Relevant to Health Maintenance Insurance [facility] MEDICAID on file Care Teams Community Service Aide Relationship Specialty Start Date End Date Pcp, Thiago, PCP - General Internal Medicine 08/05/23
--- OUTSIDE RECORDS SUMMARY | 2025-03-10 10:18 | XMS_ITS | Encounter Summary ---
Author Organization [facility] Address [address] [place] [address] Care Team Providers Care Roof Designer Name Role Phone None, None Primary Care Provider Unavailabl e Denton Fowler MD Unavailable [phone] Mauar Newby NP Unavailable Clara Rueda MD Primary Care Provider [phone] Encounter Details Date Type Department Care Team (Late st Contact Info) Description 12/19/2022 Orders Only Laboratory [address] [place] [address] Denton Fowler MD [address] [place] [address] Mixed hyperlipidemia (Primary Dx) Social History Tobacco Use Types Packs/Day Years [...] Orientation Straight 10/28/2019 3: 40 PM EDT COVID-19 Exposure Response Date Recorded In the last 10 days, have yo u been in contact with someone who was confirmed or suspected to have Coronavirus/COVID-19? No / Unsure 12/19/2022 1:15 PM EDT documented as of this encounter Plan of Treatment Not on file documented as of this encounter Visit Diagnoses Diagnosis Mixed hyperlipidemia- Primary documented in this encounter Care Teams Roof Designer Relationship Specialty Start Date End Date None, [place] [address] PCP - General 01/08/16 06/16/24 Calra Rueda MD [address] [place] [address] PCP - General Internal Medicine 06/17/24 Denton Fowler MD [address] [place] [address] Endocrinology/Diabetes/M etabolism 06/04/22 Maura Newby NP [address] [place] [address] Nurse Practitioner Endocrinology/Diabetes/M etabolism 09/12/22 documented as of this encounter
--- OUTSIDE RECORDS SUMMARY | 2025-03-10 10:18 | XMS_ITS | Encounter Summary ---
Author Organization [facility] Address [address] [place] [address] Care Team Providers Care Lacquerer Name Role Phone Delia Ndiaye MD Primary Care Provider [phone] None, None Primary Care Provider Unavailabl Keerthi Max PRACTICE SUPPORT SPECIALIST Unavailable Unavailable Brown Murphy DO Unavailable Denton Fowler MD Unavailable [phone] Maura Newby NP Unavailable Clara Rueda MD Primary Care Provider [phone] Reason for Visit * Reason Comments Medications Refill Encounter Details Date Type Department Care Team (Late st Contact Info) Description 05/30/[address] [facility] - [facility], [place] [address] [place] [phone] Ileana Wilson MD [address] [place] [address] Medications Refill Social History Tobacco [...] on filedocumented in this encounter Care Teams Lacquerer Relationship Specialty Start Date End Date Delia Ndiaye MD PCP - General Internal Medicine 05/27/13 01/07/16 None, None [address] [place] [address] PCP - General 01/08/16 06/16/24 Clara Rueda MD [address] [place] [address] PCP - General Internal Medicine 06/17/24 Keerthi Munoz NP [address] [place] [address] Nurse Practitioner Nurse Practitioner 11/28/2006/11 Brown Murphy DO [address] [place] [address] Endocrinology/Diabetes/Met abolism 08/28/21 06/11/22 Denton Fowler MD [address] [place] [address] Endocrinology/Diabetes/Met abolism 06/04/22 Maura Newby NP [address] [place] [address] Nurse Practitioner Endocrinology/Diabetes/Met abolism 09/12/22 documented as of this encounter
[2025-03-10 10:58] LABS: Hematocrit 39.3 % (36.0-48.0); Hemoglobin 13.7 g/dL (12.0-16.0); Immature Granulocytes Abs Auto 0.01 10^3/uL (0.00-0.03); Immature Granulocytes Pct Auto 0.2 % (0.0-0.5); Lymphocytes Absolute Auto 1.3 10^3/uL (1.2-3.8); Mean Corpuscular HGB Conc 34.9 g/dL (29.9-35.2); Mean Corpuscular Hemoglobin 33.3 pg (26.7-34.0); Mean Corpuscular Volume 95.4 fL (81.0-99.0); Platelet Count 119 10^3/uL (150-450); Red Blood Count 4.12 10^6/uL (4.20-5.40); White Blood Count 4.9 10^3/uL (4.0-11.0)
[2025-03-10 11:03] LABS: HCG Qualitative Urine* NEGATIVE (NEGATIVE)
[2025-03-10 11:28] LABS: Alanine Aminotransferase 89 U/L (14-59); Albumin Globulin Ratio 1.1; Albumin Level 3.8 g/dL (3.4-5.0); Alkaline Phosphatase 132 U/L (46-116); Anion Gap 11.7; Aspartate Amino Transferase 145 U/L (15-37); Blood Urea Nitrogen 10.0 mg/dL (7.0-18.0); Calcium 8.8 mg/dL (8.5-10.1); Carbon Dioxide 31.8 mmol/L (21.0-32.0); Chloride 99 mmol/L (98-107); Estimated GFR (African America >60 (>=60 mL/min/1.73m^2); Estimated GFR (Non-African Ame >60 (>=60 mL/min/1.73m^2); Globulin 3.4 g/dL; Glucose 133 mg/dL (74-106); Potassium 3.5 mmol/L (3.5-5.1); Sodium 139 mmol/L (136-145); Total Protein 7.2 g/dL (6.4-8.2)
== END 2025-03-10 10:08 | disposition home or self-care (01) ==
LOC: LAB 10:13
PROVIDERS: Visit Provider Nurse Practitioner Primary Care
DX: F10.20 Alcohol dependence, uncomplicated (principal)
CPT/HCPCS: 36415; 80053; 84702; 84703; 85025; 86317; 87340; 87389; 87522